=== PATIENT | male | born 1965 | race Caucasian/White ===

== ENCOUNTER 2017-01-29 09:05 | Emergency (ER) | payer OTHER ==
[~2017-01-29 09:05] MED LIST: ASA325 MG PO; CELEBREX200 MG PO; MIRALAX17 GM PO; OXY IR DPS5 MG PO; PROTONIX40 MG PO; SENOKOT S1 TAB PO; TYLENOL DPS325 MG PO; ULTRAM DPS50 MG PO
--- NOTE | 2017-02-22 21:30 | ER ---
ADMIT: 01/29/2017 RM/LOC: ER [facility] MR#: [id number] [address] [id number] [place] [address] Emergency Room Report SEX: M AGE: 51 : 1965 DATE: 01/29/2017 A 51-year-old, comes in with complaints of abdominal pain and blood streaking in his stool, present for the past several days. See T-sheet for remainder of history and physical. CBC was within normal limits. CMP was remarkable for a bicarb of 21, glucose 194. CT scan of the abdomen, showed no acute findings. There were multiple nonacute findings. The patient is being discharged with diagnosis of abdominal pain. He is instructed to follow up with his primary doctor this coming week. Berny Wakefield MD/ jorgito JOB #: [id number] CC: Berny Wakefield MD, Attending Physician
== END 2017-01-29 12:00 | disposition home or self-care (01) ==
LOC: ER 09:05
DX: R10.32 Left lower quadrant pain (principal); F17.210 Nicotine dependence, cigarettes, uncomplicated; Z79.899 Other long term (current) drug therapy